=== PATIENT | female | born 1995 | race Caucasian/White ===

== ENCOUNTER 2017-02-15 12:56 | Emergency (ER) | payer BC ==
--- NOTE | 2017-02-15 14:11 | EDPHY ---
H & P Stated Complaint: Body Aches, Sore Throat HPI/ROS: Chief complaint: Cold symptoms History of present illness: This is a 21-year-old female who presents to the emergency department for cold symptoms. She reports she has been sick for the last 4-5 days. She reports fevers, sore throat, runny nose, nasal congestion, cough and diffuse body aches. She has use [id number] cold medications with minimal effect. She denies other associated signs or symptoms including no trouble breathing and no rash. Review of systems: A 10 point review of systems was obtained and other than described above was negative - Personal History LMP (Females 10-55): 8-14 Days Ago Current Tetanus Diphtheria and Acellular Pertussis (TDAP): Yes Tetanus Vaccine Date: 2014 - Medical/Surgical History Hx Asthma: No Hx Chronic Respiratory Disease: No Hx Diabetes: No Hx Cardiac Disease: No Hx Renal Disease: No Hx Cirrhosis: No Hx Alcoholism: No Hx HIV/AIDS: No Hx Splenectomy or Spleen Trauma: No Other PMH: gastroparesis, ADD, depression, anxiety, foot surgery, arm surgery, botox for gastroparesis - Social History Smoking Status: Never smoked - Physical Exam Exam: General Appearance: Alert, nontoxic. Eyes: Pupils equal and round no pallor or injection. ENT, Mouth: Tympanic membranes, external auditory canals, external easr and surrounding soft tissue including over the mastoids are unremarkable. Nasopharynx is not injected. There is no rhinorrhea. Oropharynx is injected. There is no edema. There is no exudate. There is no asymmetry. The uvula is midline. No elevation of the tongue. There is no hoarseness, no drooling, no trismus, no stridor. Respiratory: There are no retractions, lungs are clear to auscultation. Cardiovascular: Regular rate and rhythm. Neurological: Alert and oriented x4. Strength and sensation intact and symmetrical. No meningismus. Skin: Warm and dry, no rashes. Musculoskeletal: Neck is supple non tender. Extremities are symmetrical, full range of motion. Psychiatric: Patient is oriented X 3, there is no agitation. Constitutional: Initial Vital Signs Temperature (C) 37 C 02/15/17 13:02 Heart Rate 117 H 02/15/17 13:02 Respiratory Rate 18 02/15/17 13:02 Blood Pressure 106/76 02/15/17 13:02 O2 Sat (%) 96 02/15/17 13:02 O2 Delivery Mode Room Air Allergies/Adverse Reactions: Sulfa (Sulfonamide Antibiotics) Allergy (Verified 06/15/15 00:27) Home Medications: Medication Instructions Recorded Adderall 10 mg Tablet 06/15/15 Bethanechol 06/15/15 Escitalopram Oxalate 06/15/15 Iron 06/15/15 LORazepam 06/15/15 Nexium 06/15/15 Ondansetron 06/15/15 Medical Decision Making ED Course/Re-evaluation: Patient seen under the supervision of my secondary supervising physician Dr. David Roberson. Patient presents to the emergency department for cold symptoms. She is influenza a positive. She is beyond time frame for treatment with Tamiflu. She is IV hydrated. Vital signs are stable. She is appropriate for home care. Symptomatic care is discussed with patient. She is to follow up with primary care doctor for recheck. Return precautions are given. Differential Diagnosis: Included but not limited to influenza, strep throat, viral syndrome, pneumonia - Data Points Medications Given: Discontinued Medications Sodium Chloride (Ns) 1,000 mls @ 0 mls/hr IV ONCE ONE PRN Reason: Wide Open Stop: 02/15/17 14:31 Last Admin: 02/15/17 14:31 Dose: 1,000 mls Departure - Departure Disposition: Home, Routine, Self-Care Clinical Impression: Influenza A Condition: Good Instructions: Influenza (ED) Additional Instructions: Follow-up with a primary care doctor for continued evaluation and care Use [id number] cold medications as directed as needed for discomfort If symptoms worsen or new symptoms develop return to the emergency room for recheck Referrals: Quinn Walker MD [Medical Doctor] - As per Instructions [facility],. [Clinic] - As per Instructions
[2017-02-15] MEDS ORDERED: NS 1,000 ML IV ONE (14:30)
[2017-02-15 15:04] VITALS: BP 106/77; PULSE 93; RESP 16; TEMP 99; O2SAT 100
== END 2017-02-15 15:33 | disposition home or self-care (01) ==
DX: J10.1 Influenza due to other identified influenza virus with other respiratory manifestations (principal)

== ENCOUNTER 2017-07-19 03:46 | Emergency (ER) | payer BC ==
[2017-07-19 03:59] VITALS: BP 117/78
[2017-07-19] MEDS ORDERED: IBUPROFEN 200 MG TAB PO ONE (04:31)
--- NOTE | 2017-07-19 04:32 | EDPHY ---
H & P Stated Complaint: R EAR PAIN POSS INFX Time Seen by Provider: 07/19/17 04:22 HPI/ROS: Chief Complaint: Ear pain HPI: 21-year-old female started having ear pain this morning. She has had several days upper respiratory infections. Mild sore throat. Some nasal congestion. No fevers or chills. Has history of ear infections in the past. Had myringotomy tubes x2 as a child. ROS: 10 point Review of Systems is negative except as noted in the HPI. PMH: Otitis media as a child Social History: No smoking, no alcohol, no recreational drug use Family History: non-contributory Physical Exam: Gen: Awake, Alert, No Distress HEENT: Ears: Right ear, there are myringotomy to scarring. TM is erythematous and bulging, left ear is negative Nose: no rhinorrhea Eyes: PERRLA, EOMI Mouth: Moist mucosa Neck: Supple, no JVD Chest: nontender, lungs clear to auscultation Heart: S1, S2 normal, no murmur Abd: Soft, non-tender, no guarding Back: no CVA tenderness, no midline tenderness Ext: no edema, non-tender Skin: no rash Neuro: CN II-XII intact, Sensation grossly intact, Strength 5/5 in bilateral upper and lower extremities - Personal History LMP (Females 10-55): 8-14 Days Ago Current Tetanus Diphtheria and Acellular Pertussis (TDAP): Yes Tetanus Vaccine Date: 2014 - Medical/Surgical History Hx Asthma: No Hx Chronic Respiratory Disease: No Hx Diabetes: No Hx Cardiac Disease: No Hx Renal Disease: No Hx Cirrhosis: No Hx Alcoholism: No Hx HIV/AIDS: No Hx Splenectomy or Spleen Trauma: No Other PMH: gastroparesis, ADD, depression, anxiety, foot surgery, arm surgery, botox for gastroparesis - Social History Smoking Status: Never smoked Constitutional: Initial Vital Signs Temperature (C) 36.9 C 07/19/17 03:57 Heart Rate 74 07/19/17 03:57 Respiratory Rate 16 07/19/17 03:57 Blood Pressure 117/78 07/19/17 03:57 O2 Sat (%) 93 07/19/17 03:57 O2 Delivery Mode Room Air Allergies/Adverse Reactions: Sulfa (Sulfonamide Antibiotics) Allergy (Verified 06/15/15 00:27) Home Medications: Medication Instructions Recorded Adderall 10 mg Tablet 06/15/15 Escitalopram Oxalate 06/15/15 Amoxicillin Trihydrate [Amoxil] 500 mg PO Q8H #30 cap 07/19/17 LaMICtal 07/19/17 Medical Decision Making ED Course/Re-evaluation: 21-year-old with otitis media . Will start with anti-inflammatories and amoxicillin, follow up with primary care physician. Departure - Departure Disposition: Home, Routine, Self-Care Clinical Impression: Acute otitis media Condition: Good Instructions: Ear Infection (ED) Additional Instructions: Alternate acetaminophen (1000 mg) with ibuprofen (400 mg) every 4 hours as needed for fevers, chills, aches or pain. Take your full course of antibiotics. Follow up with your primary care physician 3-4 days for further evaluation. Referrals: CHERYL BLISS [Other] - As per Instructions Prescriptions: Amoxicillin Trihydrate [Amoxil] 500 mg PO Q8H #30 cap
== END 2017-07-19 04:42 | disposition home or self-care (01) ==
DX: H66.91 Otitis media, unspecified, right ear (principal)